=== PATIENT | female | born 1955 | race Caucasian/White ===

== ENCOUNTER 2020-12-18 14:07 | Inpatient (IN) | payer OTHER ==
[~2020-12-18] VITALS: Ht 167.6 cm; Wt 67.9 kg
[~2020-12-18 14:07] MED LIST: AMIT25TA9; HYDR200T36; METO10TA3; NAPR500T31; OMEPRAZOLE CAP 20MG; OXYBUTYNIN TAB 5MG; PAROXETINE 20 MG; PHENYTOIN EX CAP 100MG; PROMETHAZINE 25 MG TABLET; SIMV-8; TRAM50TA2; TRAZ50TA2
[2020-12-18] MEDS ORDERED: NITROGLYCERIN 0.4 MG SL TAB SL PRN (16:15)
[2020-12-18 17:53] LABS: Basophils # (auto) 0.1 10 ^3/uL (0-0.2); Basophils % (auto) 0.6 % (0.0-2.0); Eosinophils # (auto) 0.1 10 ^3/uL (0-0.8); Eosinophils % (auto) 0.6 % (0.0-7.0); Hematocrit 41.6 % (36.0-46.0); Hemoglobin 14.4 g/dL (12.2-16.2); Lymphocytes # (auto) 1.9 10 ^3/uL (0.4-5.4); Lymphocytes % (auto) 17.8 % (10.0-50.0); Mean Corpuscular Hemoglobin 32.7 pg (28.0-32.0); Mean Corpuscular Hgb Conc. 34.5 g/dL (32.0-36.0); Mean Corpuscular Volume 94.9 fL (80.0-100.0); Monocytes # (auto) 0.7 10 ^3/uL (0-1.3); Monocytes % (auto) 6.7 % (0.0-12.0); Neutrophils % (auto) 74.3 % (37.0-80.0); Platelet Count (auto) 259 10^3/uL (140-450); Red Blood Cells 4.38 10^6/uL (4.0-5.20); Red Cell Distribution Width 13.9 % (11.8-14.3); White Blood Cell 10.8 10^3/uL (4.4-10.8)
[2020-12-18 18:07] LABS: INR 2.98 (0.9-1.15); Partial Thromboplastin Time 46.6 sec (23.0-31.2)
[2020-12-18 18:10] LABS: Albumin 4.1 g/dL (3.4-5.0); Calcium 9.4 mg/dL (8.5-10.1); Potassium 3.8 mmol/L (3.5-5.1)
[2020-12-18 18:15] LABS: BUN/Creatinine Ratio 13.4; Bilirubin, Total 0.6 mg/dL (0.2-1.0); Total Protein 8.6 g/dL (6.4-8.2)
[2020-12-18] MEDS ORDERED: SODIUM CHLORIDE 0.9% 1,000 ML IV SCH (18:30)
[2020-12-18] MEDS ORDERED: phytonadione 10 MG in SODIUM CHL 0.9% 50 ML IV ONE (18:30)
[2020-12-18] MEDS ORDERED: HYDROcodone-ACET 5/325MG TAB PO ONE (18:45)
[2020-12-18] MEDS: MORPHINE SULF INJ 2 MG/ML SYRINGE 1ML IV PRN ×3 (19:51→22:59)
[2020-12-18 22:25] VITALS: BP 103/51
[2020-12-18 23:57] VITALS: BP 103/51
[2020-12-19] VITALS (17 sets, daily range): BP systolic 100–162; BP diastolic 51–61
[2020-12-19] MEDS ORDERED: ATOR40TA52 PO (01:44)
[2020-12-19] MEDS ORDERED: SACU1TAB PO (02:03)
[2020-12-19] MEDS ORDERED: AMIT25TA9 PO (02:03)
[2020-12-19] MEDS ORDERED: PHE100C PO (02:03)
[2020-12-19] MEDS ORDERED: PAR20T PO (02:03)
[2020-12-19] MEDS ORDERED: WARF4TAB33 PO (02:03)
[2020-12-19] MEDS ORDERED: HYDR-4296 PO (02:03)
[2020-12-19] MEDS ORDERED: HYDR200T36 PO (02:03)
[2020-12-19] MEDS ORDERED: METO25TA93 PO (02:03)
[2020-12-19] MEDS ORDERED: OMEP20TA PO (02:03)
[2020-12-19] MEDS ORDERED: TRAM50TA2 PO (02:03)
[2020-12-19] MEDS ORDERED: METO-517 PO (02:03)
[2020-12-19] MEDS ORDERED: LORA-655 PO (02:03)
[2020-12-19] MEDS ORDERED: OXYB10GE TD (02:03)
[2020-12-19] MEDS: MORPHINE SULF INJ 2 MG/ML SYRINGE 1ML IV PRN ×3 (05:29→19:48)
[2020-12-19 05:41] LABS: Basophils # (auto) 0.1 10 ^3/uL (0-0.2); Basophils % (auto) 0.7 % (0.0-2.0); Eosinophils # (auto) 0.1 10 ^3/uL (0-0.8); Eosinophils % (auto) 1.9 % (0.0-7.0); Hematocrit 35.3 % (36.0-46.0); Hemoglobin 12.2 g/dL (12.2-16.2); Lymphocytes # (auto) 1.6 10 ^3/uL (0.4-5.4); Lymphocytes % (auto) 20.8 % (10.0-50.0); Mean Corpuscular Hemoglobin 32.9 pg (28.0-32.0); Mean Corpuscular Hgb Conc. 34.7 g/dL (32.0-36.0); Monocytes # (auto) 0.8 10 ^3/uL (0-1.3); Monocytes % (auto) 11.1 % (0.0-12.0); Neutrophils % (auto) 65.5 % (37.0-80.0); Platelet Count (auto) 218 10^3/uL (140-450); Red Blood Cells 3.72 10^6/uL (4.0-5.20); Red Cell Distribution Width 13.7 % (11.8-14.3); White Blood Cell 7.6 10^3/uL (4.4-10.8)
[2020-12-19 05:58] LABS: INR 1.15 (0.9-1.15)
[2020-12-19 06:08] LABS: BUN/Creatinine Ratio 16.9; Calcium 8.7 mg/dL (8.5-10.1); Potassium 3.9 mmol/L (3.5-5.1)
[2020-12-19] MEDS ORDERED: OPTISON 3ml Vial for INJ IV ONE (10:27)
[2020-12-19] MEDS ORDERED: BUPIVACAINE 0.5% MPF INJ 30ML SDV IJ ONE (14:04)
[2020-12-19] MEDS ORDERED: fentaNYL CITRATE 100 MCG/2 ML VL ONE (14:18)
[2020-12-19] MEDS ORDERED: MIDAZOLAM HCL 1MG/1ML-2 ML VIAL ONE (14:18)
[2020-12-19] MEDS: ceFAZolin 1GM 2 GM in D5W 5% 100 ML IV ONE ×2 (14:40→14:50)
[2020-12-19] MEDS ORDERED: LIDOCAINE 2% (LOCAL ANESTH.) PF 5ml SDV ONE (16:18)
[2020-12-19] MEDS ORDERED: PROPOFOL 10 MG/ML 20 ML IV ONE (16:35)
[2020-12-19] MEDS ORDERED: ONDANSETRON HCL 4 MG/2 ML VIAL ONE (16:44)
[2020-12-19] MEDS: ceFAZolin 1GM/50ML 50 ML IV SCH ×2 (17:00→23:18)
[2020-12-19] MEDS ORDERED: LACTATED RINGER'S 1,000 ML IV SCH (17:00)
[2020-12-19] MEDS ORDERED: ONDANSETRON HCL 4 MG/2 ML VIAL IV PRN (17:15)
[2020-12-19] MEDS: hydrALAZINE HCL 20 MG/ML VL IV PRN (17:23)
[2020-12-19] MEDS: HYDROmorphone HCL 2 MG/ML VL IV PRN ×4 (17:34→18:04)
[2020-12-19] MEDS: ONDANSETRON HCL 4 MG/2 ML VIAL IV PRN (19:49)
[2020-12-19] MEDS: ACETAMINOPHEN 325 MG TAB PO PRN (22:58)
[2020-12-20] MEDS: ONDANSETRON HCL 4 MG/2 ML VIAL IV PRN ×2 (00:13→05:34)
[2020-12-20] MEDS: MORPHINE SULF INJ 2 MG/ML SYRINGE 1ML IV PRN ×2 (01:17→14:00)
[2020-12-20] MEDS: ACETAMINOPHEN 325 MG TAB PO PRN ×2 (04:30→10:00)
[2020-12-20 05:07] VITALS: BP 165/68
[2020-12-20] MEDS: ceFAZolin 1GM/50ML 50 ML IV SCH (05:30)
[2020-12-20] MEDS: hydrALAZINE HCL 20 MG/ML VL IV PRN (05:34)
[2020-12-20 05:46] LABS: Basophils # (auto) 0 10 ^3/uL (0-0.2); Basophils % (auto) 0.3 % (0.0-2.0); Eosinophils # (auto) 0.1 10 ^3/uL (0-0.8); Eosinophils % (auto) 0.7 % (0.0-7.0); Hematocrit 35.4 % (36.0-46.0); Hemoglobin 11.9 g/dL (12.2-16.2); Lymphocytes # (auto) 0.9 10 ^3/uL (0.4-5.4); Lymphocytes % (auto) 7.6 % (10.0-50.0); Mean Corpuscular Hemoglobin 32.4 pg (28.0-32.0); Mean Corpuscular Hgb Conc. 33.6 g/dL (32.0-36.0); Mean Corpuscular Volume 96.2 fL (80.0-100.0); Monocytes # (auto) 1.1 10 ^3/uL (0-1.3); Monocytes % (auto) 9.1 % (0.0-12.0); Neutrophils # (auto) 10.1 10 ^3/uL (1.6-8.6); Neutrophils % (auto) 82.3 % (37.0-80.0); Platelet Count (auto) 215 10^3/uL (140-450); Red Blood Cells 3.68 10^6/uL (4.0-5.20); Red Cell Distribution Width 13.7 % (11.8-14.3); White Blood Cell 12.2 10^3/uL (4.4-10.8)
[2020-12-20 06:04] LABS: BUN/Creatinine Ratio 8.8; Calcium 8.5 mg/dL (8.5-10.1); Potassium 3.5 mmol/L (3.5-5.1)
[2020-12-20 06:37] VITALS: BP 133/63
[2020-12-20] MEDS ORDERED: LORazepam 2MG/ML-1ML VIAL IV PRN (07:15)
[2020-12-20 08:37] VITALS: BP 159/51
[2020-12-20] MEDS ORDERED: OMEPRAZOLE 20MG/10ML ORAL SUSP PO SCH (10:00)
[2020-12-20] MEDS ORDERED: PHENYTOIN SODIUM 100 MG CAP PO SCH (10:00)
[2020-12-20] MEDS ORDERED: hydrOXYchloroQUINE SULFATE 200 MG TAB PO SCH (10:00)
[2020-12-20] MEDS ORDERED: METOPROLOL TARTRATE 25 MG TAB PO SCH (10:00)
[2020-12-20] MEDS ORDERED: SACUBITRIL-VALSARTAN 24mg/26mg TAB PO SCH (10:00)
[2020-12-20] MEDS ORDERED: LORazepam 0.5 MG TAB PO SCH (10:00)
[2020-12-20] MEDS ORDERED: PARoxetine 20 MG TAB PO SCH (10:00)
[2020-12-20] MEDS ORDERED: PATIENTS OWN MEDICATION (Atorvastatin Calcium 1 TAB) PO SCH (10:00)
[2020-12-20] MEDS ORDERED: METOCLOPRAMIDE HCL 10 MG TAB PO SCH (12:00)
[2020-12-20 12:40] VITALS: BP 141/57
[2020-12-20] MEDS ORDERED: hydrALAZINE HCL 25 MG TAB PO SCH (14:00)
[2020-12-20 16:36] VITALS: BP 135/53
[2020-12-20 16:52] VITALS: BP 141/59
[2020-12-20] MEDS ORDERED: ATORVASTATIN 20 MG TAB PO SCH (18:00)
[2020-12-20] MEDS ORDERED: AMITRIPTYLINE HCL 25 MG TAB PO SCH (22:00)
[2020-12-20] MEDS ORDERED: traMADol HCL 50 MG TAB PO SCH (22:00)
== END 2020-12-20 17:57 | disposition home health service (06) | DRG 482 ==
LOC: ER 14:07 → TELE 16:14 → TELE-CENTR 21:12
PROVIDERS: ADMIT Internal Medicine; ATTEND Internal Medicine
PROC: 30233K1 Transfusion of Nonautologous Frozen Plasma into Peripheral Vein, Percutaneous Approach (ICD-10-PCS; 2020-12-19)
PROC: 0QS734Z Reposition Left Upper Femur with Internal Fixation Device, Percutaneous Approach (ICD-10-PCS; principal; 2020-12-19 14:40)
DX: S72.002A Fracture of unspecified part of neck of left femur, initial encounter for closed fracture (principal); W18.39XA Other fall on same level, initial encounter; Y93.89 Activity, other specified; Y92.22 Religious institution as the place of occurrence of the external cause; Y99.9 Unspecified external cause status; M32.9 Systemic lupus erythematosus, unspecified; I11.0 Hypertensive heart disease with heart failure; Z20.822 Contact with and (suspected) exposure to COVID-19; Z79.01 Long term (current) use of anticoagulants; M06.9 Rheumatoid arthritis, unspecified; I50.9 Heart failure, unspecified; I25.10 Atherosclerotic heart disease of native coronary artery without angina pectoris; F41.1 Generalized anxiety disorder; F17.210 Nicotine dependence, cigarettes, uncomplicated; Z90.710 Acquired absence of both cervix and uterus; Z95.1 Presence of aortocoronary bypass graft; Z95.2 Presence of prosthetic heart valve
CPT/HCPCS: 36415; 51702; 71045; 72170; 73502; 73700; 76001; 80048; 80053; 84484; 85025; 85610; 85730; 86850; 86900; 86901; 87081; 87426; 93005; 93306; 96365; 96375; A4565; G0378; J0690; J2001; J2250; J2405; J2704; J3430; J3490; J7060; Q9956

== ENCOUNTER 2023-10-28 03:28 | Emergency (ER) | payer OTHER ==
[~2023-10-28] VITALS: Ht 162.6 cm; Wt 50.0 kg
[~2023-10-28 03:28] MED LIST changes: +AMIT25TA20 PO; -AMIT25TA9; +ATOR40TA52 PO; +HYDR-4296 PO; -HYDR200T36; +HYDR200T36 PO; +LORA-655 PO; +METO-517 PO; -METO10TA3; +METO25TA93 PO; -NAPR500T31; +OMEP20TA PO; -OMEPRAZOLE CAP 20MG; +OXYB10GE TD; -OXYBUTYNIN TAB 5MG; +PAR20T PO; -PAROXETINE 20 MG; +PHEN1CAP60 PO; -PHENYTOIN EX CAP 100MG; -PROMETHAZINE 25 MG TABLET; +SACU1TAB PO; -SIMV-8; -TRAM50TA2; +TRAM50TA2 PO; -TRAZ50TA2; +WARF-112 PO
[2023-10-28] MEDS ORDERED: DEXTROSE 50% SYRINGE 50 ML IV ONE (03:41)
[2023-10-28 03:52] VITALS: PULSE 89; RESP 11; O2SAT 97
[2023-10-28] MEDS ORDERED: DEXTROSE 10% 1,000 ML IV ONE (04:21)
[2023-10-28] MEDS: DEXTROSE 10% 1,000 ML IV ONE (04:23)
[2023-10-28 04:30] LABS: Urine Bacteria NONE SEEN /hpf (None Seen); Urine Blood TRACE /uL (Negative); Urine Clarity Clear (Clear); Urine Color Yellow (Yellow); Urine Hyaline Cast MOD /lpf (0 - 2); Urine Protein, UAD 1+ (Negative); Urine Specific Gravity 1.016 (1.001-1.035); Urine WBC 3 /hpf (0 - 5); Urine pH 5.5 (5.0-8.0)
[2023-10-28] MEDS ORDERED: SODIUM CHLORIDE 0.9% 1,500 ML IV ONE (04:30)
[2023-10-28] MEDS ORDERED: VANCOMYCIN HCL 1000 MG VL IV ONE (04:30)
[2023-10-28] MEDS ORDERED: NOREPINEPHRINE 8 MG/250ML KIT 250 ML IV SCH (04:30)
[2023-10-28] MEDS ORDERED: OCTREOTIDE ACETATE 100 MCG in SODIUM CHL 0.9% 50 ML IV ONE (04:45)
[2023-10-28] MEDS ORDERED: ALBUMIN 25% 100 ML IV ONE (04:45)
[2023-10-28] MEDS ORDERED: ONDANSETRON HCL 4 MG/2 ML VIAL IV ONE (04:45)
[2023-10-28] MEDS ORDERED: DEXTROSE (50%) 50ML SYRG IV ONE ×2 (04:45)
[2023-10-28] MEDS ORDERED: PANTOPRAZOLE 40 MG/10 ML VIAL INJ IV ONE (04:45)
[2023-10-28] MEDS ORDERED: SODIUM BICARB 8.4% 50Meq/50ml SYR INJ IV ONE ×2 (04:45)
[2023-10-28 04:56] VITALS: BP 50/34; PULSE 43; RESP 20
[2023-10-28] MEDS ORDERED: DOPamine 1600MCG/ML D5W 250 ML IV ONE (05:00)
[2023-10-28] MEDS ORDERED: ATROPINE SULF 1 MG/10ml SYR IV ONE (05:00)
[2023-10-28] MEDS ORDERED: GLUCAGON EMERG KIT 1mg/1ml IV ONE (05:00)
[2023-10-28] MEDS ORDERED: CEFEPIME 1GM/ 50ML 50 ML IV SCH ×2 (05:00→06:00)
[2023-10-28 05:03] LABS: Alanine Aminotransferase 23 U/L (7-40); Albumin 2.8 g/dL (3.2-4.8); Alkaline Phosphatase 171 U/L (46-116); Anion Gap 22.00001 (5-15); Aspartate Aminotransferase 47 U/L (13-40); BUN/Creatinine Ratio 20.2 (10.0-20.0); Basophils # (auto) 0.1 10 ^3/uL (0-0.2); Bilirubin, Total 0.5 mg/dL (0.2-1.0); Blood Urea Nitrogen 21 mg/dL (9-23); Chloride 103 mmol/L (98-107); Glucose 138 mg/dL (74-106); Lymphocytes % (auto) 13.4 % (10.0-50.0); Magnesium 2.3 mg/dL (1.6-2.6); Potassium 4.3 mmol/L (3.5-5.1); Sodium 135 mmol/L (136-145); Total Protein 4.5 g/dL (5.7-8.2)
[2023-10-28 05:07] LABS: Amphetamine Screen, Urine Pos (NEGATIVE); Barbiturate Scree,Urine Neg (NEGATIVE); Benzodiazephine Screen, Urine Neg (NEGATIVE); Cannabinoid Screen, Urine Pos (NEGATIVE); Cocaine Screen, Urine Neg (NEGATIVE); Opiate Scree,Urine Neg (NEGATIVE); Phencyclidine Screen, Urine Neg (NEGATIVE)
[2023-10-28 05:11] LABS: Basophils % (auto) 0.4 % (0.0-2.0); Eosinophils # (auto) 0.1 10 ^3/uL (0-0.8); Eosinophils % (auto) 0.4 % (0.0-7.0); Mean Corpuscular Hemoglobin 33.8 pg (28.0-32.0); Mean Corpuscular Hgb Conc. 28.4 g/dL (32.0-36.0); Mean Corpuscular Volume 119.1 fL (80.0-100.0); Monocytes # (auto) 0.3 10 ^3/uL (0-1.3); Monocytes % (auto) 2.2 % (0.0-12.0); Neutrophils # (auto) 12.5 10 ^3/uL (1.6-8.6); Neutrophils % (auto) 83.6 % (37.0-80.0); Nucleated Red Blood Cells % 1.4 %; Red Blood Cells 1.43 10^6/uL (4.0-5.20); White Blood Cell 14.9 10^3/uL (4.4-10.8)
[2023-10-28 05:13] LABS: Carbon Dioxide < 10 mmol/L (20-30)
[2023-10-28 05:14] LABS: Hemoglobin 4.8 g/dL (12.2-16.2); Red Cell Distribution Width 22.7 % (11.8-14.3)
[2023-10-28 05:24] LABS: Blood Alcohol < 3.0 mg/dL (<10)
[2023-10-28] MEDS: NOREPINEPHRINE 8 MG/250ML KIT 250 ML IV ONE (05:43)
[2023-10-28] MEDS: MIDAZOLAM DRIP 50 mg/50mL 50 ML IV ONE (05:43)
[2023-10-28] MEDS ORDERED: MIDAZOLAM DRIP 50 mg/50mL 50 ML IV SCH (05:45)
[2023-10-28 05:54] LABS: Partial Thromboplastin Time 69.2 SEC (24.5-34.5)
[2023-10-28 05:58] LABS: Fibrinogen 244 mg/dL (177-375); INR > 8.0 (0.9-1.15)
[2023-10-28] MEDS ORDERED: DexAMETHasone SOD PHOS 10MG/1ML VIAL INJ IV SCH (06:00)
[2023-10-28 06:33] LABS: Lactic Acid w/Reflex 19.6 mmol/L (0.4-2.0)
== END 2023-10-28 05:00 ==
LOC: ER 03:28 → EDUNIT# 03:28 → ER 05:00
DX: I46.9 Cardiac arrest, cause unspecified (principal); T68.XXXA Hypothermia, initial encounter; E16.2 Hypoglycemia, unspecified; R41.82 Altered mental status, unspecified; R06.89 Other abnormalities of breathing; Z79.01 Long term (current) use of anticoagulants; Z79.899 Other long term (current) drug therapy
CPT/HCPCS: 31500; 36415; 36556; 36600; 71045; 80053; 80307; 80320; 81001; 82550; 82553; 82805; 83605; 83690; 83735; 83880; 84443; 84484; 85025; 85379; 85384; 85610; 85730; 86141; 86850; 86900; 86901; 87040; 87070; 87086; 87205; 92950; 96360; 99291; J2250; J7042